=== PATIENT | male | born 1990 | race Caucasian/White ===

== ENCOUNTER 2020-07-07 15:14 | Emergency (ER) | payer BC, SELFPAY ==
--- NOTE | ~2020-07-07 | CT_ITS ---
EXAMINATION: CT ABDOMEN AND PELVIS WITHOUT CONTRAST CLINICAL INFORMATION: Right flank pain radiating into the right lower quadrant. Hematuria. Evaluate for a renal stone. COMPARISON: None TECHNIQUE: Multidetector volumetric imaging was performed from the superior aspect of the liver through the pubic symphysis. Sagittal and coronal reformatted images were obtained on the technologist's workstation. This CT examination was performed using dose optimization techniques as appropriate, variously including the following: Automated exposure control. Adjustment of mA and/or kV according to patient size (this includes techniques or standardized protocols for targeted exams where dose is matched to indication/reason for exam; i.e. extremities or head). Use of iterative reconstruction technique. DLP: 1204 mGy-cm FINDINGS: LUNG BASES: The visualized lung bases are unremarkable. LIVER, GALLBLADDER, AND BILIARY TREE: The liver is normal in size, shape, and attenuation. No focal hepatic lesion or biliary ductal dilatation is present. The gallbladder is unremarkable with no evidence of radiopaque gallstones, gallbladder wall thickening, or obvious pericholecystic inflammatory changes. PANCREAS: Unremarkable. SPLEEN: Unremarkable. ADRENAL GLANDS: Unremarkable. KIDNEYS AND URETERS: The kidneys are normal in size, shape, and attenuation. No hydronephrosis, hydroureter, or calculi seen. No perinephric stranding. BLADDER: Nondistended and unremarkable. GASTROINTESTINAL TRACT: No bowel wall thickening or associated inflammatory change. No small or large bowel obstruction. Unremarkable appendix. PERITONEAL CAVITY: No intra-abdominal free air or free fluid. No intra-abdominal mass or organized fluid collection/abscess formation. ABDOMINAL WALL: No significant hernia is appreciated. LYMPH NODES: No significant lymphadenopathy. VASCULAR: Unremarkable. PELVIC VISCERA: The prostate and seminal vesicles are unremarkable. OSSEOUS STRUCTURES: Unremarkable. CT/CT abdomen pelvis wo con IMPRESSION: 1. No hydronephrosis or nephrolithiasis. Partially distended and unremarkable urinary bladder. 2. No bowel wall thickening or associated inflammatory change. No small or large bowel obstruction. Unremarkable appendix. 3. No intra-abdominal mass, lymphadenopathy, or ascites.
[2020-07-07 15:22] VITALS: BP 151/95; PULSE 107; RESP 16; TEMP 36.7; O2SAT 97; BMI 44.4
[2020-07-07 15:55] LABS: MANUAL DIFF FLAG NO
[2020-07-07 15:57] LABS: Basophils Absolute Auto 0.1 X10*3/uL (0.0-0.2); Basophils Percent Auto 0.7 % (0-2); Eosinophils Percent Auto 0.4 % (0-4); Hematocrit 49.5 % (42-52); Hemoglobin 17.2 g/dl (14.0-18.0); Imm Gran Abs Auto 0.02 X10*3/uL (0.00-0.03); Imm Gran Pct Auto 0.2 % (0.0-0.4); Lymphocytes Absolute Auto 1.7 X10*3/uL (1.2-4.9); Lymphocytes Percent Auto 20.2 % (20-40); Mean Corpuscular HGB Conc 34.7 g/dl (31.0-36.0); Mean Corpuscular Hemoglobin 28.6 pg (27.0-33.0); Mean Corpuscular Volume 82.4 fL (80-98); Monocytes Absolute Auto 0.5 X10*3/uL (0.1-1.2); Monocytes Percent Auto 6.5 % (2-11); Neutrophils Absolute Auto 5.9 X10*3/uL (2.0-8.3); Platelet Count 207 X10*3/uL (160-400); Red Blood Count 6.01 X10*6/uL (4.60-5.80); Red Cell Distribution Width 12.4 % (11.0-16.0); White Blood Count 8.2 X10*3/uL (4.8-10.8)
[2020-07-07 16:21] LABS: Anion Gap 15 (12-20); Blood Urea Nitrogen 14 mg/dL (9-16); Calcium 9.6 mg/dL (8.4-10.2); Carbon Dioxide 26 mmol/L (22-29); Chloride 102 mmol/L (96-108); Creatinine Clr Calc Pharmacy 198.5; Estimated Glomerular Filt Rate > 60; Glucose Random 87 mg/dL (60-115); Potassium 3.5 mmol/L (3.3-5.1); Sodium 139 mmol/L (135-145)
[2020-07-07 17:18] VITALS: BP 152/98; PULSE 105; RESP 18; O2SAT 97
--- NOTE | 2020-07-07 18:34 | ED.ABDPAIN ---
HPI - Abdominal Pain General Chief Complaint: Abdominal Pain Stated Complaint: abd pain Time Seen by Provider: 07/07/20 18:24 Source: patient Mode of arrival: ambulatory Limitations: no limitations History of Present Illness HPI narrative: 30-year-old male with a past medical history of hypertension, hyperlipidemia, obesity here with complaints of low back pain right greater than left with radiation to the right lower abdomen x3 days with some pressure with voiding. No dysuria, frequency, urgency. No fevers, chills, nausea, vomiting, diarrhea, constipation. Seen at urgent care and had a UA which showed moderate blood and referred to the emergency department for further evaluation. Patient tells me he is sexually active with 1 female partner. He is not concerned for STDs and would not like to be tested. No penile discharge, testicular pain, rashes or lesions. Related Data Allergies Allergy/AdvReac Type Severity Reaction Status Date / Time No Known Allergies Allergy Unverified 12/08/19 16:42 [No Known Allergies*] Review of Systems Review of Systems Yes all other systems are reviewed and are negative Constitutional: Reports no additional constitutional complaints, Denies body ache(s), Denies chills, Denies fever(s), Denies headache(s) and Denies weakness Eyes: Reports no additional eye complaints and Denies change in vision Reports system reviewed and no additional complaints, except as documented, Denies dizziness, Denies headache(s), Denies nasal congestion, Denies nasal discharge and Denies neck pain Cardiovascular: Reports no additional cardiovascular complaints, Denies chest pain, Denies leg edema and Denies dyspnea Respiratory: Reports no additional respiratory complaints, Denies cough and Denies dyspnea Gastrointestinal: Reports no additional gastrointestinal complaints, Reports abdominal pain, Denies diarrhea, Denies nausea and Denies vomiting Genitourinary: Denies urinary incontinence Musculoskeletal: Reports no additional musculoskeletal complaints, Reports back pain, Denies arthralgias, Denies joint swelling, Denies neck pain, Denies numbness and Denies tingling Skin/Breast: Reports system reviewed and no additional complaints, except as docu and Denies rash Reports system reviewed and no additional complaints, except as documented, Denies Abnormal speech present, Denies dizziness, Denies headache(s), Denies numbness, Denies tingling and Denies weakness Physical Exam Vital Signs: Vital Signs: Last Vital Signs Temp 98.2 F 07/07/20 18:35 Pulse 105 H 07/07/20 18:35 Resp 18 07/07/20 18:35 BP 170/102 H 07/07/20 18:35 Pulse Ox 96 07/07/20 18:35 Body Mass Index 44.4 Const: General: cooperative, healthy appearing, comfortable and no acute distress Orientation/consciousness: patient oriented x3 Limitations: no limitations HENMT: Head: Yes normal to inspection Ears: hearing grossly normal bilaterally General nose exam: Normal external nose present Face and sinus: Yes normal facial exam Mouth: Normal oral and palatal mucosa present Throat: Yes posterior oropharynx normal Eyes: General: appearance normal, both eyes and all related structures Pupils: Equal, round and reactive pupils present Neck: Neck: Yes normal visual inspection Chest: Chest palpation & inspection: normal inspection of the chest Resp: Effort & Inspection: normal respiratory effort Auscultation: clear to auscultation bilaterally Cardio: Rate: regular rate Rhythm: regular rhythm Peripheral pulses: Peripheral pulses 2+ throughout GI: Inspection: Yes normal to inspection Palpation (GI): Soft to palpation and Tenderness to palpation present (GI) (Mild suprapubic, right and left lower abdomen) Auscultation: normal bowel sounds : Other: deferred exam General: Yes no CVA tenderness Back/Spine/Pelvis: Back: no CVA tenderness Thoracic/Lumbar Spine: thoracic and lumbar spine normal to inspection Skin: General skin exam: no rashes or lesions noted Neuro: General: patient oriented x3, no focal motor deficits and normal sensation to monofilament Cranial nerves: Yes Equal, round and reactive pupils present Cognition (Neuro): normal cognition Speech: No Abnormal speech present Gait exam (Neuro): Normal gait present Motor exam (neuro): 5/5 motor strength present throughout Extrem: General: Yes normal to inspection Course Course Course Narrative: 30-year-old male here with lower back pain with radiation to the lower abdomen x3 days with pelvic pressure. No urinary symptoms, fevers, chills, diarrhea. No testicular pain. Will need labs, UA, CTA/P. 1930-labs are unremarkable. UA is negative for infection or RBC. CT shows a partially distended bladder but otherwise is unremarkable. Reviewed findings with the patient. Unclear source of abdominal pain. However, he is feeling very comfortable and denies any acute pain at this time. Reviewed worrisome signs and symptoms and when to return to the emergency department. Comfortable discharge home. MDM - Abdominal Pain MDM Narrative Medical decision making narrative: UTI, renal colic, appendicitis, diverticulitis Medical Records Attestation: I reviewed the patient's medical records. Lab Data Attestation: I reviewed the patient's lab results. Result diagrams: 07/07/20 15:48 07/07/20 15:48 Labs: Lab Results 07/07/20 07/07/20 07/07/20 Range/Units 15:48 15:48 15:48 WBC 8.2 (4.8-10.8) X10*3/uL RBC 6.01 H (4.60-5.80) X10*6/uL Hgb 17.2 (14.0-18.0) g/dl Hct 49.5 (42-52) % MCV 82.4 (80-98) fL MCH 28.6 (27.0-33.0) pg MCHC 34.7 (31.0-36.0) g/dl RDW 12.4 (11.0-16.0) % Plt Count 207 (160-400) X10*3/uL MPV 11.0 (9.4-12.4) fL Immature Gran % (Auto) 0.2 (0.0-0.4) % Neut % (Auto) 72.0 (45-73) % Lymph % (Auto) 20.2 (20-40) % [place] % (Auto) 6.5 (2-11) % Eos % (Auto) 0.4 (0-4) % Baso % (Auto) 0.7 (0-2) % Lymph # (Auto) 1.7 (1.2-4.9) X10*3/uL [place] # (Auto) 0.5 (0.1-1.2) X10*3/uL Eos # (Auto) 0.0 (0.0-0.4) X10*3/uL Baso # (Auto) 0.1 (0.0-0.2) X10*3/uL Abs Immat Gran (auto) 0.02 (0.00-0.03) X10*3/uL Absolute Neuts (auto) 5.9 (2.0-8.3) X10*3/uL Absolute Nucleated RBC 0.000 (0.0-0.012) X10*3/uL Nucleated RBC % (auto) 0.0 (0.0-0.2) /100WBC Hold Blue Top SEE NOTE Sodium 139 (135-145) mmol/L Potassium 3.5 (3.3-5.1) mmol/L Chloride 102 (96-108) mmol/L Carbon Dioxide 26 (22-29) mmol/L Anion Gap 15 (12-20) BUN 14 (9-16) mg/dL Creatinine 0.77 (0.5-1.4) mg/dL Estim Creat Clear Calc 198.5 Estimated GFR > 60 Random Glucose 87 (60-115) mg/dL Calcium 9.6 (8.4-10.2) mg/dL Urine Color Urine Appearance Urine pH (5.0-8.0) Ur Specific [place] (1.005-1.025) Urine Protein (NEG-TRACE) MG/DL Urine Glucose (UA) (NEG) MG/DL Urine Ketones (NEG) MG/DL Urine Blood (NEG) Urine Nitrite (NEG) Ur Leukocyte Esterase (NEG) 07/07/20 Range/Units 18:39 WBC (4.8-10.8) X10*3/uL RBC (4.60-5.80) X10*6/uL Hgb (14.0-18.0) g/dl Hct (42-52) % MCV (80-98) fL MCH (27.0-33.0) pg MCHC (31.0-36.0) g/dl RDW (11.0-16.0) % Plt Count (160-400) X10*3/uL MPV (9.4-12.4) fL Immature Gran % (Auto) (0.0-0.4) % Neut % (Auto) (45-73) % Lymph % (Auto) (20-40) % [place] % (Auto) (2-11) % Eos % (Auto) (0-4) % Baso % (Auto) (0-2) % Lymph # (Auto) (1.2-4.9) X10*3/uL [place] # (Auto) (0.1-1.2) X10*3/uL Eos # (Auto) (0.0-0.4) X10*3/uL Baso # (Auto) (0.0-0.2) X10*3/uL Abs Immat Gran (auto) (0.00-0.03) X10*3/uL Absolute Neuts (auto) (2.0-8.3) X10*3/uL Absolute Nucleated RBC (0.0-0.012) X10*3/uL Nucleated RBC % (auto) (0.0-0.2) /100WBC Hold Blue Top Sodium (135-145) mmol/L Potassium (3.3-5.1) mmol/L Chloride (96-108) mmol/L Carbon Dioxide (22-29) mmol/L Anion Gap (12-20) BUN (9-16) mg/dL Creatinine (0.5-1.4) mg/dL Estim Creat Clear Calc Estimated GFR Random Glucose (60-115) mg/dL Calcium (8.4-10.2) mg/dL Urine Color YELLOW Urine Appearance CLEAR Urine pH 6.0 (5.0-8.0) Ur Specific [place] 1.010 (1.005-1.025) Urine Protein NEG (NEG-TRACE) MG/DL Urine Glucose (UA) NEG (NEG) MG/DL Urine Ketones NEG (NEG) MG/DL Urine Blood NEG (NEG) Urine Nitrite NEG (NEG) Ur Leukocyte Esterase NEG (NEG) Discharge Plan Discharge Clinical Impression: Abdominal pain Qualifiers: Abdominal location: unspecified location Qualified Code(s): R10.9 - Unspecified abdominal pain Patient Disposition: Home, Self-Care Instructions: Abdominal Pain (ED) Additional Instructions: Your lab work and urine tests are unremarkable. Your CAT scan shows no evidence of appendicitis. Your bladder is slightly distended but there is no evidence of infection on her urine sample. You may have passed a kidney stone. There is no kidney stone noted on exam Increase fluids, rest Referrals: Sherif Hernandez MD [Primary Care Provider] - 2 days Interventions: ED Discharge Assessment Last Done: 07/07/20 19:33 Discharge Date/Time: 07/07/20 19:34 [facility] Past Medical History Attestation statement: The following information was validated with the patient. Source: old records reviewed and nursing notes reviewed Medical History GERD (gastroesophageal reflux disease) HLD (hyperlipidemia) HTN (hypertension) Social History Social History Advance Directives: No Advance Directives Information Provided: No
[2020-07-07 18:35] VITALS: BP 170/102; PULSE 105; RESP 18; TEMP 36.8; O2SAT 96
[2020-07-07 18:47] LABS: Appearance Urine CLEAR; Color Urine YELLOW; Glucose Urine UA NEG (NEG); Leukocyte Esterase Urine NEG (NEG); Nitrite Urine NEG (NEG); Urine Blood NEG (NEG); Urine Ketones NEG (NEG); Urine Protein NEG (NEG-TRACE)
== END 2020-07-07 19:34 | disposition home or self-care (01) ==
PROVIDERS: Nurse Practitioner Family; Emergency Provider Internal Medicine; PCP Internal Medicine
DX: R10.9 Unspecified abdominal pain (principal); M54.5 Low back pain; I10 Essential (primary) hypertension; E78.5 Hyperlipidemia, unspecified; Z79.899 Other long term (current) drug therapy
CPT/HCPCS: 36415; 74176; 80048; 81003; 85025; 99283

== ENCOUNTER 2023-10-05 18:09 | Emergency (ER) | payer OTHER, SELFPAY ==
[2023-10-05 18:41] VITALS: BP 154/119; PULSE 101; RESP 19; TEMP 36.3; O2SAT 97; BMI 46.8
--- NOTE | 2023-10-05 18:44 | ED.GENADULT ---
HPI - General Adult General Chief complaint: Chest Pain Stated complaint: anxiety, stress, chest discomfort Time Seen by Provider: 10/05/23 21:02 Source: patient and old records reviewed Mode of arrival: ambulatory Limitations: no limitations History of Present Illness ED Provider: MIRANDA PALUMBO narrative: 33 yo male with PMH of anxiety, GERD, HTN, HLD here with c/o recurrent panic attacks sense of doom wants EKG - has intense health anxiety made worse by being on family vacation and his SANDRITA in front of everyone. No SI/HI. Has no therapist on prozac and PRN ativan wants to talk to someone. complaint: anxiety Onset (ago): month(s) Radiation: non-radiation Severity: moderate Relieving factors: none Exacerbating factors: other Associated symptoms: chest pain Treatments prior to arrival: none Related Data Allergies Allergy/AdvReac Type Severity Reaction Status Date / Time No Known Allergies Allergy Verified 10/05/23 18:45 [No Known Allergies*] Review of Systems Review of Systems: Constitutional : No Fever, No Chills ENT/Mouth : No Ear Pain, No Nasal Congestion, No sore throat Eyes: No Eye Pain, No Swelling, No Redness Cardiovascular : pos Chest Pain, No SOB Respiratory : No Cough, No Sputum, No Dyspnea Gastrointestinal : No Nausea, No Vomiting, No Diarrhea, No Hematochezia, No Melena Genitourinary : No Dysuria, No Urinary Frequency, No Hematuria Musculoskeletal : No Myalgias Skin : No Skin Lesions, No rash Neuro : No Weakness, No Numbness, No Paresthesias, No Dizziness, No Headache Psych : positive Anxiety, positive Depression, no SI/HI All other systems reviewed and are negative [facility] Past Medical History Attestation statement: The following information was validated with the patient. Source: old records reviewed Medical History GERD (gastroesophageal reflux disease) HLD (hyperlipidemia) HTN (hypertension) Social History Social History (Updated 10/05/23 @ 21:07 by Donna Javier DO) Patient Tobacco Use Status: Tobacco use Unknown Smoked in Last 30 Days: No Use of substances other than those prescribed or required for medical reasons: No Advance Directives: No Advance Directives Information Provided: No Do you have a plan to hurt others: No Plan Physical Exam ED Vital Signs: Vital Signs - 24 hr 10/05/23 18:41 Temperature 97.4 F Pulse Rate 101 H Respiratory Rate 19 Blood Pressure 154/119 H Pulse Oximetry 97 Oxygen Delivery Method Room Air BMI result Body Mass Index 46.8 Appearance: Alert. Oriented X3. No acute distress. anxious Eyes: Pupils equal, round and reactive to light. ENT: Pharynx normal. Neck: Normal inspection. Neck supple. CVS: Normal heart rate and rhythm. Pulses normal. Respiratory: No respiratory distress. Breath sounds normal. Abdomen: Soft and nontender. Skin: Skin warm and dry. Normal skin color. Normal skin turgor. Extremities: No lower extremity edema. No calf ttp Neuro: Oriented X 3. No motor deficit. No sensory deficit. CN2-12 intact Course Course Course Narrative: RME performed by Joan Lindo PA-C. Patient is a 33 year old assigned male at presenting to the emergency department with increased anxiety and stress. Patient states he has been to the ER at least 3 times in the last 2 weeks for increased anxiety. Patient states that yesterday he was on vacation with his when he watched his father in law either choke or have a heart attack and in front of them. Patient denies any thoughts of hurting himself or others but wants someone to talk to. Detailed physical exam and review of systems are deferred to the primary products inspectors. Patient placed back in the waiting room pending room availability and results. Medical Decision Making Medical Decision Making [facility] Narrative: 33 yo male with PMH of anxiety, GERD, HTN, HLD here with c/o atypical chest pain he has had on and off for months now made worse after seeing SANDRITA at this time will need labs, EKG, and refer to CARE team [facility] for PE/ACS has had these symptoms many times in past with negative workup. CARE team offered Differential Diagnosis Differential Diagnoses: The differential diagnosis associated with the presentation includes atypical chest pain, healthy anxiety, grief Admission/Observation Consideration of admission/observation: Escalation of care including admission/observation considered negative workup cleared by CARE team Consult Healthcare Provider Management of the patient was discussed with: Behavioral Health Provider Lab Data [facility] Lab Attestation statement: I reviewed the patient's lab results. 10/05/23 18:58 10/05/23 18:58 Labs: Lab Results 07/15/24 07/15/24 Range/Units 18:58 21:15 WBC 9.3 (4.8-10.8) X10*3/uL RBC 5.87 H (4.60-5.80) X10*6/uL Hgb 16.1 (14.0-18.0) g/dl Hct 46.0 (42.0-52.0) % MCV 78.4 L (80.0-98.0) fL MCH 27.4 (27.0-33.0) pg MCHC 35.0 (31.0-36.0) g/dl RDW 13.1 (11.0-16.0) % Plt Count 262 (160-400) X10*3/uL MPV 10.4 (9.4-12.4) fL Immature Gran % (Auto) 0.2 (0.0-0.4) % Neut % (Auto) 72.2 (45-73) % Lymph % (Auto) 19.7 L (20-40) % [place] % (Auto) 7.0 (2-11) % Eos % (Auto) 0.1 (0-4) % Baso % (Auto) 0.8 (0-2) % Lymph # (Auto) 1.8 (1.2-4.9) X10*3/uL [place] # (Auto) 0.7 (0.1-1.2) X10*3/uL Eos # (Auto) 0.0 (0.0-0.4) X10*3/uL Baso # (Auto) 0.1 (0.0-0.2) X10*3/uL Abs Immat Gran (auto) 0.02 (0.00-0.03) X10*3/uL Absolute Neuts (auto) 6.7 (2.0-8.3) x10*3/uL Absolute Nucleated RBC 0.000 (0.0-0.012) X10*3/uL Nucleated RBC % (auto) 0.0 (0.0-0.2) /100WBC Sodium 139 (135-145) mmol/L Potassium 3.4 (3.3-5.1) mmol/L Chloride 103 (96-108) mmol/L Carbon Dioxide 23 (22-29) mmol/L Anion Gap 16 (12-20) BUN 15 (9-16) mg/dL Creatinine 0.81 (0.5-1.4) mg/dL Estim Creat Clear Calc 189.0 Estimated GFR > 60 Random Glucose 92 (60-115) mg/dL Calcium 10.3 H D (8.4-10.2) mg/dL Total Bilirubin 0.6 (0.0-1.0) mg/dL AST 26 (5-37) U/L ALT 38 (0-40) U/L Alkaline Phosphatase 73 (39-117) U/L Total Protein 8.3 H (6.5-8.0) g/dL Albumin 4.7 (3.5-5.0) g/dL Urine Color Yellow Urine Appearance Clear Urine pH 6.0 (5.0-9.0) Ur Specific [place] 1.025 (1.005-1.025) Urine Protein Trace (Neg-Trace) mg/dL Urine Glucose (UA) Negative (Negative) mg/dL Urine Ketones 15 (Negative) mg/dL Urine Blood Negative (Negative) Urine Nitrite Negative (Negative) Ur Leukocyte Esterase Negative (Negative) Salicylates < 5.0 L (15-30) mg/dL Urine Opiates Screen Not Detected (Not Detect) Ur Buprenorphine Scrn Not Detected (Not Detect) ng/mL Ur Oxycodone Screen Not Detected (Not Detect) ng/mL Urine Methadone Screen Not Detected (Not Detect) ng/mL Urine Fentanyl Screen Not Detected (Not Detect) Acetaminophen < 3 (<30) mcg/mL Ur Barbiturates Screen Not Detected (Not Detect) Ur Phencyclidine Scrn Not Detected (Not Detect) Ur Amphetamines Screen Not Detected (Not Detect) U Benzodiazepines Scrn Not Detected (Not Detect) Urine Cocaine Screen Not Detected (Not Detect) U Marijuana (THC) Screen Not Detected (Not Detect) Ethyl Alcohol < 10 mg/dL COVID-19 (HEMAL) Negative (Negative) COVID-19 Clin Com See Note Independent Interpretation I performed an independent interpretation of an: EKG Interpretation: Rate: 89 Rhythm: NSR [place]: normal Normal P waves. Normal CIRO. Normal QRS complex. ST T wave : normal no DENA qTC: 469 prior studies: no acute ischemia The study has been interpreted contemporaneously by me. . External Record Review External record reviewed: Inpatient record Discharge Plan Discharge Clinical Impression: Atypical chest pain, Anxiety Patient Disposition: Home, Self-Care Instructions: Anxiety (ED), Chest Pain (ED) Additional Instructions: labs and EKG reassuring return for any worsening symptoms or concerns follow up with plan set up by CARE team Print Language: Slovenian
[2023-10-05 19:08] LABS: Basophils Absolute Auto 0.1 X10*3/uL (0.0-0.2); Basophils Percent Auto 0.8 % (0-2); Eosinophils Percent Auto 0.1 % (0-4); Hemoglobin 16.1 g/dl (14.0-18.0); Imm Gran Abs Auto 0.02 X10*3/uL (0.00-0.03); Imm Gran Pct Auto 0.2 % (0.0-0.4); Lymphocytes Absolute Auto 1.8 X10*3/uL (1.2-4.9); Lymphocytes Percent Auto 19.7 % (20-40); MANUAL DIFF FLAG NO; Mean Corpuscular Hemoglobin 27.4 pg (27.0-33.0); Mean Corpuscular Volume 78.4 fL (80.0-98.0); Mean Platelet Volume 10.4 fL (9.4-12.4); Monocytes Absolute Auto 0.7 X10*3/uL (0.1-1.2); Neutrophils Absolute Auto 6.7 x10*3/uL (2.0-8.3); Neutrophils Percent Auto 72.2 % (45-73); Platelet Count 262 X10*3/uL (160-400); Red Blood Count 5.87 X10*6/uL (4.60-5.80); Red Cell Distribution Width 13.1 % (11.0-16.0); White Blood Count 9.3 X10*3/uL (4.8-10.8)
[2023-10-05 19:24] LABS: COVID-19 Test Negative (Negative); IDNOW Serial# 6674DD1D
[2023-10-05 19:37] LABS: Acetaminophen LAB < 3 mcg/mL (<30); Alanine Aminotransferase 38 U/L (0-40); Albumin Level 4.7 g/dL (3.5-5.0); Alkaline Phosphatase 73 U/L (39-117); Anion Gap 16 (12-20); Aspartate Amino Transferase 26 U/L (5-37); Bilirubin Total 0.6 mg/dL (0.0-1.0); Blood Urea Nitrogen 15 mg/dL (9-16); Calcium 10.3 mg/dL (8.4-10.2); Carbon Dioxide 23 mmol/L (22-29); Chloride 103 mmol/L (96-108); Estimated Glomerular Filt Rate > 60; Ethanol < 10 mg/dL; Glucose Random 92 mg/dL (60-115); Potassium 3.4 mmol/L (3.3-5.1); Salicylate < 5.0 mg/dL (15-30); Sodium 139 mmol/L (135-145); Total Protein 8.3 g/dL (6.5-8.0)
[2023-10-05 21:23] LABS: Appearance Urine Clear; Color Urine Yellow; Glucose Urine UA Negative (Negative); Leukocyte Esterase Urine Negative (Negative); Nitrite Urine Negative (Negative); Specific Gravity - Urine 1.025 (1.005-1.025); Urine Blood Negative (Negative); Urine Ketones 15 mg/dL (Negative); Urine Protein Trace mg/dL (Neg-Trace)
--- NOTE | 2023-10-05 21:23 | ECG_ITS ---
Test Reason : chest pain Blood Pressure : / mmHG Vent. Rate : 089 BPM Atrial Rate : 089 BPM P-R Int : 142 ms QRS Dur : 092 ms QT Int : 386 ms P-R-T Axes : 043 029 005 degrees QTc Int : 469 ms Normal sinus rhythm Normal ECG When compared with ECG of 16-MAY-2019 01:52, No significant change was found Referred By: Donna Javier Electronically Signed By:JULIEN GARSIA MD
[2023-10-05 21:48] LABS: Amphetamine Screen Urine Not Detected (Not Detect); Barbiturates, Urine Not Detected (Not Detect); Benzodiazepines Screen Urine Not Detected (Not Detect); Buprenorphine Scr Not Detected (Not Detect); Cannabinoid Screen Urine Not Detected (Not Detect); Cocaine Screen Urine Not Detected (Not Detect); Fentanyl, urine Not Detected (Not Detect); Methadone Screen, Urine Not Detected (Not Detect); Opiate Screen Urine Not Detected (Not Detect); Oxycodone Screen Urine Not Detected (Not Detect); Phencyclidine Screen Urine Not Detected (Not Detect)
[2023-10-05 22:46] VITALS: BP 152/98; PULSE 83; RESP 16; O2SAT 96
[2023-10-05 23:09] VITALS: BP 152/98; PULSE 83; RESP 16; TEMP 36.8; O2SAT 96
== END 2023-10-05 23:08 | disposition home or self-care (01) ==
PROVIDERS: Physician Assistant Medical; Emergency Provider Emergency Medicine; PCP Internal Medicine
DX: R07.89 Other chest pain (principal); F41.8 Other specified anxiety disorders; M25.50 Pain in unspecified joint; Z63.8 Other specified problems related to primary support group; Z11.52 Encounter for screening for COVID-19; Z79.899 Other long term (current) drug therapy
CPT/HCPCS: 80053; 80143; 80179; 80307; 81003; 85025; 87635; 93005; 99284; S9485

== ENCOUNTER → 2023-10-05 21:23 | Outpatient (BNV) | payer OTHER, SELFPAY | PROVIDERS: Emergency Provider Emergency Medicine; PCP Internal Medicine; Visit Provider Internal Medicine Cardiovascular Disease | DX: R07.9 Chest pain, unspecified (principal) | CPT/HCPCS: 93010 ==